=== PATIENT | male | born 1990 | race Hispanic/Latino ===

== ENCOUNTER 2023-01-28 12:09 | Emergency (ER) | payer SELFPAY ==
--- NOTE | ~2023-01-28 | CT_ITS ---
EXAMINATION: CT abdomen pelvis w con DATE: 01/28/2023 14:33 INDICATION: Periumbilical abdominal pain. TECHNIQUE: Computed tomography (CT) of the abdomen and pelvis was performed with 100 mL Omnipaque 350 intravenous contrast. Automated exposure control and iterative reconstruction technique were employe d. The dose-length product was 210.17 mGy-cm. COMPARISON: None. FINDINGS: The visualized portions of the lung bases demonstrate minimal atelectasis on the right. The re is a 4 mm nodule in left lower lobe, likely benign. No pleural effusion. The heart size is normal. No pericardial effusion. The liver, gallbladder, spleen, pancreas, adrenal glands, and right kidney are normal. There is an 11 mm cyst in left kidney. The bladder is distended. There are no dilated loo ps of bowel. The visualized portion of the appendix is normal. There is a small umbilical hernia cont aining fat. There are no pathologically enlarged lymph nodes. There is no free intraperitoneal fluid. The bones are unremarkable. IMPRESSION: 1. Small umbilical hernia containing fat. Reviewed, dictated and finalized at location A.
[2023-01-28 12:18] VITALS: BP 118/69; PULSE 66; RESP 18; TEMP 36.6; O2SAT 100
[2023-01-28 12:50] LABS: Strep Group A RT-PCR NOT DETECTED (Negative)
--- NOTE | 2023-01-28 13:15 | PC.NURSE ---
Patient having abdominal pain when he talks for last 4 months, states it has gotten worse over the last month. denies pain when not talking. denies medical history. states he had his friend send him medications from [place] for the pain which are not helping, patient does not know name of medications that he is taking from [place].
[2023-01-28] MEDS: SODIUM CHLORIDE 0.9% IV 1,000 ML 999 ML IV CONT (13:35)
[2023-01-28 13:41] LABS: Basophils Absolute Auto 0.1 K/mm3 (0.0-0.1); Basophils Percent Auto 1.2 % (0.2-1.2); Eosinophils Absolute Auto 0.1 K/mm3 (0-0.3); Eosinophils Percent Auto 1.9 % (0-4.4); Hematocrit 43.8 % (42.0-52.0); Hemoglobin 14.9 g/dL (14.0-18.0); Immature Granulocyte Absolute 0.02 K/mm3 (0.00-0.031); Immature Granulocyte Percent A 0.4 % (0-0.5); Lymphocytes Absolute Auto 0.95 K/mm3 (0.9-3.2); Lymphocytes Percent Auto 16.7 % (18.3-44.2); Mean Corpuscular Hemoglobin 29.3 pg (26-34); Mean Corpuscular Volume 86.1 fl (80-100); Mean Platelet Volume 9.3 fl (7.4-10.4); Monocytes Absolute Auto 0.5 K/mm3 (0.1-0.6); Monocytes Percent Auto 9.5 % (2.6-8.5); Neutrophils Percent Auto 70.3 % (45.5-73.1); Platelet Count Result 232 k/mm3 (150-375); Red Blood Count 5.09 M/mm3 (4.6-6.20); Red Cell Distribution Width 12.9 % (11.5-14.5); White Blood Count 5.7 K/mm3 (4.5-10.0)
[2023-01-28 13:43] LABS: Appearance Urine Clear (Clear); Bilirubin Urine Negative (Negative); Blood Urine Negative (Negative); Color Urine Yellow (Yellow); Glucose Urine UA Negative (Negative); Ketones Urine Negative (Negative); Leukocyte Esterase Ur Negative LEU/UL (Negative); Nitrate Urine Negative (Negative); Protein Urine Negative (Negative); Specific Grav Ur 1.009 (1.001-1.035); Urobilinogen Urine 0.2 mg/dL (<2.0); pH Urine 7.5 (5.0-9.0)
[2023-01-28 13:51] LABS: Alanine Aminotransferase 29 U/L (6-50); Albumin Level 4.5 g/dL (3.5-5.1); Alkaline Phosphatase 73 U/L (38-126); Anion Gap 5 mmol/L (8-16); Aspartate Amino Transferase 32 U/L (17-59); Bilirubin,Total 0.6 mg/dL (0.2-1.3); Blood Urea Nitrogen 9 mg/dL (9-20); Carbon Dioxide 33 mmol/L (22-30); Chloride 102 mmol/L (98-107); Estimated CRCL calculation 106 ml/min; Estimated Glomerular Filt Rate > 60; Glucose 97 mg/dL (65-110); Lipase 104 U/L (23-300); Potassium 3.8 mmol/L (3.4-5.0); Sodium 140 mmol/L (137-145)
[2023-01-28 13:59] LABS: Add Urine Microscopic? NO
--- NOTE | 2023-01-28 14:28 | ED.GENADULT ---
HPI - General Adult General Chief complaint: Upper Respiratory Infection Stated complaint: c/o it hurts to talk, voice hurts when I speak Time Seen by Provider: 01/28/23 12:22 History of Present Illness HPI narrative: 32-year-old Amharic-speaking male presents to the emergency room for evaluation of abdominal pain, his voice hurts when he speaks . Patient states he has been experiencing periumbilical pain when he talks. Denies any nausea vomiting or diarrhea. Denies any shortness of breath or sore throat. States that a friend of his in [place] sent him medication for his symptoms . Reports these medications did not alleviate his symptoms. Patient does not know what medications were sent to him. Related Data Allergies Allergy/AdvReac Type Severity Reaction Status Date / Time No Known Allergies Allergy Verified 01/28/23 12:22 Review of Systems Review of Systems: CONSTITUTIONAL: Denies fever, chills, or sweats. EYES: Denies visual changes, redness, or discharge. ENT: Denies rhinorrhea, congestion, sore throat, or otalgia. CARDIOVASCULAR: Denies chest pain, palpitations, or edema. RESPIRATORY: Denies cough or dyspnea. GASTROINTESTINAL: Reports abdominal pain GENITOURINARY: Denies dysuria or hematuria. SKIN: Denies rash or itching. MUSCULOSKELETAL: Denies back pain, joint pain, or myalgia. NEUROLOGIC: Denies headache, numbness, dizziness, or weakness. PSYCHIATRIC: Denies anxiety or depression. Exam Narrative: GENERAL: Well-appearing, well-nourished, no physical limitations, and in no acute distress. HEAD: Normocephalic, atraumatic. EYES: Conjunctivae normal, PERRLA and EOMI. CHEST: Clear to auscultation. No respiratory distress. No wheezes rales or rhonchi. HEART: Regular rate and rhythm. No murmur heard. Normal peripheral pulses. ABDOMEN: Soft, periumbilical tenderness, nondistended, normal active bowel sounds. BACK: No CVA tenderness EXTREMITIES: Normal range of motion. No edema. No clubbing or cyanosis SKIN: Warm, dry, no rash. No noted wounds NEURO: No focal deficits. Alert and oriented x3. MAEW. CN's II-XI intact bilaterally, normal gait PSYCH: Cooperative. Normal mood and affect. Course Vital Signs Vital signs: Vital Signs Temperature 36.6 C 01/28/23 12:18 Pulse Rate 66 01/28/23 12:18 Respiratory Rate 18 01/28/23 12:18 Blood Pressure 118/69 01/28/23 12:18 Pulse Oximetry 100 01/28/23 12:18 Oxygen Delivery Room Air 01/28/23 12:18 Temperature 36.6 C 01/28/23 12:18 Pulse Rate 66 01/28/23 12:18 Respiratory Rate 18 01/28/23 12:18 Blood Pressure 118/69 01/28/23 12:18 Pulse Oximetry 100 01/28/23 12:18 Oxygen Delivery Room Air 01/28/23 12:18 Medical Decision Making MDM Narrative Medical decision making narrative: 32-year-old Amharic-speaking patient presented with periumbilical pain intermittently for 1 month. Stated the pain was worse when he was talking. Reportedly took an unknown medication that was sent to him from [place], this medication did not alleviate his symptoms. Lab work was unremarkable. CT scan showed no acute abnormality. Patient will be given referrals to follow-up with his a PCP and GI. Vital Signs Vital Signs: Vital Signs Temperature 36.6 C 01/28/23 12:18 Pulse Rate 66 01/28/23 12:18 Respiratory Rate 18 01/28/23 12:18 Blood Pressure 118/69 01/28/23 12:18 Pulse Oximetry 100 01/28/23 12:18 Oxygen Delivery Room Air 01/28/23 12:18 Temperature 36.6 C 01/28/23 12:18 Pulse Rate 66 01/28/23 12:18 Respiratory Rate 18 01/28/23 12:18 Blood Pressure 118/69 01/28/23 12:18 Pulse Oximetry 100 01/28/23 12:18 Oxygen Delivery Room Air 01/28/23 12:18 Lab Data 01/28/23 13:35 01/28/23 13:34 Labs: Lab Results 01/28/23 01/28/23 01/28/23 Range/Units 12:22 13:34 13:35 WBC 5.7 (4.5-10.0) K/mm3 RBC 5.09 (4.6-6.20) M/mm3 Hgb 14.9 (14.0-18.0) g/dL Hct
[2023-01-28] MEDS: BELLADONNA ALK/PHENOB ELIX 10 ML, MAG HYDROX/ALUMINUM HYD/SIMETH 30 ML, LIDOCAINE HCL 2... PO (15:44)
[2023-01-28 15:58] VITALS: BP 116/78; PULSE 75; RESP 15; O2SAT 98
== END 2023-01-28 16:06 | disposition home or self-care (01) ==
PROVIDERS: Emergency Medicine; Emergency Provider Nurse Practitioner Family
DX: R10.33 Periumbilical pain (principal)
CPT/HCPCS: 36415; 74177; 80053; 81003; 83690; 85025; 87651; 96360; 99284; A9270; J7030; Q9967